=== PATIENT | female | born 1935 | race Caucasian/White ===

== ENCOUNTER 2019-08-13 06:02 | Day surgery (SDC) | payer MEDICARE, OTHER ==
[~2019-08-13 06:02] MED LIST: ATIVAN PO; CRESTOR PO; DABI150C PO; DIOVAN PO; DIPH50TA15 PO; LOSA1TAB39 PO; METO25TA3 PO; OMEP20CA4 PO; PRADAXA PO; PROC10TA13 PO; SOLI5TAB2 PO; TOPROL PO; TRAM50TA2 PO
[2019-08-13] MEDS ORDERED: IRR STERIL WATER FOR IRR 1000 ML BOTTLE IR ONE (06:03)
[2019-08-13] MEDS ORDERED: KETOROLAC 0.5% OPHT DROP 3 ML BOTTLE ONE (06:19)
[2019-08-13] MEDS ORDERED: TETRACAINE HCL 0.5% OPHT DROP 2 ML BOTTLE ONE ×2 (06:19→07:19)
[2019-08-13] MEDS ORDERED: PHENYLEPHRINE 2.5% OPHT DROP 2 ML BOTTLE ONE (06:20)
[2019-08-13] MEDS ORDERED: CIPROFLOXACIN 0.3% OPHT DROP 2.5 ML BOTTLE ONE (06:20)
[2019-08-13] MEDS ORDERED: CYCLOPENTOLATE 1% OPHT DROP 2 ML BOTTLE ONE (06:20)
[2019-08-13 06:41] LABS: BASOPHILS # (AUTO) 0.1 K/uL (0.0-8.0); BASOPHILS % (AUTO) 1.5 % (0.0-2.0); EOSINOPHILS # (AUTO) 0.1 K/uL (0.0-0.7); EOSINOPHILS % (AUTO) 2.4 % (0.0-7.0); HEMATOCRIT 38.7 % (31.2-41.9); HEMOGLOBIN 13.2 g/dL (10.9-14.3); LYMPHOCYTES # (AUTO) 1.2 K/uL (20.0-40.0); MEAN CORPUSCULAR HEMOGLOBIN 30.9 uug (24.7-32.8); MEAN CORPUSCULAR HGB CONC 34 g/dL (32.3-35.6); MONOCYTES # (AUTO) 0.3 K/uL (2.0-10.0); MONOCYTES % (AUTO) 7.8 % (0.0-11.0); NEUTROPHILS # (AUTO) 2.5 K/uL (1.8-8.9); NEUTROPHILS % (AUTO) 60.3 % (38.5-71.5); PLATELET COUNT (AUTO) 144 K/uL (179-408); RED BLOOD CELL COUNT(AUTO) 4.25 MIL/uL (3.63-4.92); WHITE BLOOD COUNT (AUTO) 4.2 K/uL (3.8-11.8)
[2019-08-13 06:48] LABS: CREATININE 0.8 mg/dL (0.6-1.3); POTASSIUM 4.1 mmol/L (3.5-5.1)
[2019-08-13 06:53] LABS: *BILIRUBIN,URIN NEGATIVE (NEGATIVE); *CLARITY,URINE CLEAR (CLEAR); *COLOR,URINE YELLOW (YELLOW); *KETONES,URINE NEGATIVE (NEGATIVE); *UROBILINOGEN,URINE 0.2 E.U./dl (NORMAL); LEUKOCYTE ESTERASE ,URINE 1+ (NEGATIVE); NITRITE, URINE NEGATIVE (NEGATIVE); PH,URINE 6.5 (5.0-8.0); UGLUCOSE NEGATIVE (NEGATIVE)
[2019-08-13 06:54] LABS: *BLOOD, URINE TRACE (NEGATIVE)
[2019-08-13 06:57] LABS: WBC,URINE 50-80 /HPF (0-3)
[2019-08-13 06:59] LABS: BACTERIA,URINE FEW /HPF (NONE SEEN); SQUAMOUS EPITHELIAL CELL,UR MODERATE /HPF (NONE SEEN)
[2019-08-13] MEDS ORDERED: BALANCED SALT IRRIG SOLN COMB1 500 ML, EPINEPHRINE-PF 1:1000 1 MG IO ONE ×2 (07:00)
[2019-08-13] MEDS ORDERED: LIDOCAINE HCL-MPF 1% 5 ML VIAL ONE (07:19)
[2019-08-13] MEDS ORDERED: PILOCARPINE 1% OPHT DROP 15 ML BOTTLE ONE (07:19)
[2019-08-13] MEDS ORDERED: NEO/POLYMYX B/DEXAME OPHT OINT 3.5 GM TUBE ONE (07:19)
[2019-08-13] MEDS ORDERED: BALANCED SALT IRRIG SOLN COMB2 15 ML IRRIG.SOLN ONE (07:20)
[2019-08-13] MEDS ORDERED: EPINEPHRINE 1 MG/1 ML AMP ONE (07:20)
[2019-08-13] MEDS ORDERED: BUPIVACAINE PF 0.5% 30 ML VIAL ONE (07:20)
[2019-08-13] MEDS ORDERED: FENTANYL CITRATE 100 MCG/2 ML AMPUL ONE (07:55)
[2019-08-13] MEDS ORDERED: MIDAZOLAM HCL 2 MG/2 ML VIAL ONE (07:55)
== END 2019-08-13 11:45 | disposition home or self-care (01) ==
LOC: DS 06:02
PROVIDERS: ATTEND Dermatology MOHS-Micrographic Surgery
DX: E11.36 Type 2 diabetes mellitus with diabetic cataract (principal); H25.89 Other age-related cataract; I25.10 Atherosclerotic heart disease of native coronary artery without angina pectoris; I48.19 Other persistent atrial fibrillation; E78.00 Pure hypercholesterolemia, unspecified; D51.9 Vitamin B12 deficiency anemia, unspecified; I87.2 Venous insufficiency (chronic) (peripheral); I34.0 Nonrheumatic mitral (valve) insufficiency; I10 Essential (primary) hypertension; F41.9 Anxiety disorder, unspecified; M06.9 Rheumatoid arthritis, unspecified; Z79.899 Other long term (current) drug therapy; Z98.890 Other specified postprocedural states; Z98.61 Coronary angioplasty status
CPT/HCPCS: 36415; 66984; 80048; 81000; 81001; 85025; 85730; 87086; 93005; J0171 ×2; J2250; J3010; J3490 ×2; J7120; V2632; A4217; A4663; J3590

== ENCOUNTER 2021-12-14 08:58 | Outpatient (CLI) | payer MEDICARE, OTHER | END 2021-12-14 23:59 | disposition home or self-care (01) | LOC: CT 08:58 | PROVIDERS: ATTEND Orthopaedic Surgery Sports Medicine | DX: M17.12 Unilateral primary osteoarthritis, left knee (principal); M25.462 Effusion, left knee; M85.88 Other specified disorders of bone density and structure, other site; M79.89 Other specified soft tissue disorders | CPT/HCPCS: 73700 ==

== ENCOUNTER 2023-06-03 13:15 | Emergency (ER) | payer MEDICARE, OTHER ==
[~2023-06-03] VITALS: Ht 165.1 cm; Wt 99.8 kg
[2023-06-03 13:44] VITALS: O2SAT 96
[2023-06-03] MEDS ORDERED: LOSA1TAB42 PO (14:03)
[2023-06-03] MEDS ORDERED: MIRA25TA PO (14:03)
[2023-06-03] MEDS ORDERED: ROSU40TA PO (14:03)
[2023-06-03] MEDS ORDERED: DABI150C PO (14:03)
[2023-06-03] MEDS ORDERED: METO25TA3 PO (14:03)
[2023-06-03] MEDS ORDERED: LINA145C PO (14:03)
[2023-06-03 14:16] LABS: HEMATOCRIT 33.1 % (31.2-41.9); MEAN CORPUSCULAR HEMOGLOBIN 28.3 uug (24.7-32.8); PLATELET COUNT (AUTO) 185 K/uL (179-408)
[2023-06-03 14:27] LABS: CARBON DIOXIDE 26 mmol/L (21-32); CHLORIDE 101 mmol/L (98-107); CREATININE 0.9 mg/dL (0.6-1.3); POTASSIUM 3.9 mmol/L (3.5-5.1); UREA NITROGEN, BLOOD 18 mg/dL (7-18)
[2023-06-03 14:36] LABS: ALANINE AMINOTRANSFERASE 32 U/L (14-59); ALKALINE PHOSPHATASE 53 U/L (50-136); ASPARTATE AMINOTRANSFERASE 14 U/L (15-37); BILIRUBIN,DIRECT 0.2 mg/dL (0.0-0.2); BILIRUBIN,TOTAL 0.6 mg/dL (0.2-1.0); TOTAL PROTEIN, SERUM 6.8 g/dL (6.4-8.2)
[2023-06-03 14:44] LABS: *BLOOD, URINE 1+ (NEGATIVE); *CLARITY,URINE CLEAR (CLEAR); *COLOR,URINE YELLOW (YELLOW); *KETONES,URINE TRACE (NEGATIVE); *UROBILINOGEN,URINE 0.2 E.U./dl (NORMAL); LEUKOCYTE ESTERASE ,URINE 1+ (NEGATIVE); NITRITE, URINE NEGATIVE (NEGATIVE); PH,URINE 5.5 (5.0-8.0); UGLUCOSE NEGATIVE (NEGATIVE)
[2023-06-03 14:45] LABS: LIPASE 21 U/L (73-393)
[2023-06-03 14:51] LABS: *BILIRUBIN,URIN 1+ (NEGATIVE)
[2023-06-03 15:01] LABS: BACTERIA,URINE MANY /HPF (NONE SEEN); SQUAMOUS EPITHELIAL CELL,UR MODERATE /HPF (NONE SEEN); WBC,URINE 20-50 /HPF (0-3)
--- NOTE | 2023-06-03 15:53 | NUR ---
Pt is getting anxious, would like to go home. MD aware, will d/c.
[2023-06-03] MEDS ORDERED: KETOROLAC TROMETHAMINE 15 MG INJ IVP ONE (16:00)
[2023-06-03] MEDS ORDERED: KETOROLAC TROMETHAMINE 15 MG INJ ONE (16:21)
--- NOTE | 2023-06-03 16:26 | NUR ---
pt c/o 7/10 pain in left ribs and arm. Admin ketoralac in right deltoid
[2023-06-03] MEDS ORDERED: IOHEXOL 350 100 ML INFUS..BTL ONE (16:45)
[2023-06-03] MEDS ORDERED: IV NORMAL SALINE 250 ML IV ONE (16:45)
[2023-06-03] MEDS ORDERED: SWABABLE VALVE TRANSFER SET EA MC ONE (16:45)
--- NOTE | 2023-06-03 17:00 | NUR ---
Pt agreed to IV for CTA. After 1 failed attempt, pt wanted to leave again. refused additional attempts.
--- NOTE | 2023-06-03 17:10 | NUR ---
Pt's daughter signed pt out AMA. Gave daughter d/c instructions, labs and radiology readings
== END 2023-06-03 17:20 | disposition left against medical advice (07) ==
LOC: ER 13:15
DX: R10.32 Left lower quadrant pain (principal); R07.89 Other chest pain; E11.9 Type 2 diabetes mellitus without complications; Z79.899 Other long term (current) drug therapy
CPT/HCPCS: 99285; 74176; 96374; 71045; 80076; 80048; 81001; 83690; 85025; 85379; 84484; 36415; 93005; J1885; A4663; Q9967